=== PATIENT | female | born 1995 | race Caucasian/White ===

== ENCOUNTER 2017-10-27 19:41 | Emergency (ER) | payer OTHER ==
[~2017-10-27] VITALS: Ht 154.9 cm; Wt 92.1 kg
[~2017-10-27 19:41] MED LIST: ACET500 PO; AMOX500 PO; BCOIRO PO; BGALA3.3 PO; CALCA500CH PO; CALCAVITDA PO; CEPH500 PO; CIPR500 PO; CITA20 PO; CLOB.05TC TP; CLOM50A; HYDHCL25 PO; HYDPAM25 PO; HYDPAM50 PO; IBUP400 PO; LACTOBACILLUS; LORA.5 PO; LORA10 PO; LORA10ER PO; MELA3; MELA3 PO; MONT10T; MULVITA; NEOPOLHCSU OT; NYST100P TOP; OMEP20ER; OMEP20ER PO; OMEPRAZOLE MAGN20 MG PO; QUET100 PO; QUET25; QUET25 PO; RISP.5 PO; RISP2 PO; SELENIUM; SUCR1 PO; SULTRIDS PO; TOPI25 PO; TOPI50 PO; TRIA80TC TOP; [UNRECOGNIZED DRUG - OTHER]
[2017-10-27] MEDS ORDERED: BUSP5 (19:48)
[2018-04-29] MEDS ORDERED: WAL-FEX D 24 H1 EACH PO (13:34)
[2018-04-29] MEDS ORDERED: ACIDOPHILUS100 M1 PO (13:35)
[2018-04-29] MEDS ORDERED: Dairy Relie3000 UNIT PO (13:36)
[2018-04-29] MEDS ORDERED: Melatonin5 M1 PO (13:37)
[2018-04-29] MEDS ORDERED: TRAZ50 PO (13:38)
[2018-04-29] MEDS ORDERED: DIVA250EC PO (13:38)
[2018-04-29] MEDS ORDERED: BUSP10 PO (13:39)
[2018-04-29] MEDS ORDERED: HEARTBURN RELI150 M1 PO (13:39)
[2018-06-01] MEDS ORDERED: Hair, Skin & N1 EACH PO (12:09)
[2018-06-01] MEDS ORDERED: L-Lysine500 M1 (12:09)
[2018-06-01] MEDS ORDERED: SELENIUM (12:10)
== END 2017-10-27 20:45 | disposition home or self-care (01) ==
LOC: ER 19:41
DX: S60.352A Superficial foreign body of left thumb, initial encounter (principal); Z88.2 Allergy status to sulfonamides; Z79.899 Other long term (current) drug therapy; W45.8XXA Other foreign body or object entering through skin, initial encounter
CPT/HCPCS: 90471; 90714; 99283

== ENCOUNTER 2018-05-09 09:09 | Day surgery (SDC) | payer OTHER ==
[~2018-05-09] VITALS: Wt 81.7 kg
[~2018-05-09 09:09] MED LIST changes: +ACIDOPHILUS100 M1 PO; +BUSP10 PO; +BUSP5; +DIVA250EC PO; +Dairy Relie3000 UNIT PO; +HEARTBURN RELI150 M1 PO; +Melatonin5 M1 PO; +TRAZ50 PO; +WAL-FEX D 24 H1 EACH PO
[2018-05-09 12:24] LABS: Valproic Acid 16.7 ug/mL (50.0-100.0)
== END 2018-05-09 13:55 | disposition home or self-care (01) ==
LOC: ORSCSDS 09:09
PROVIDERS: Psychiatry & Neurology Psychiatry
DX: K02.9 Dental caries, unspecified (principal); F84.0 Autistic disorder; F79 Unspecified intellectual disabilities; G47.33 Obstructive sleep apnea (adult) (pediatric); K21.9 Gastro-esophageal reflux disease without esophagitis; Z79.899 Other long term (current) drug therapy
CPT/HCPCS: 80164; J1100; J1885; J2250; J2405; J2550; J3010; J7120

== ENCOUNTER 2018-06-02 09:04 | Day surgery (SDC) | payer OTHER ==
[~2018-06-02] VITALS: Ht 154.9 cm; Wt 82.1 kg
[~2018-06-02 09:04] MED LIST changes: +Hair, Skin & N1 EACH PO; +L-Lysine500 M1
== END 2018-06-02 15:33 | disposition home or self-care (01) ==
LOC: ORSCMMR 09:04 → ORD 10:00 → ORSCMMR 10:00
PROVIDERS: Internal Medicine Gastroenterology
PROC: 0DJD8ZZ Inspection of Lower Intestinal Tract, Via Natural or Artificial Opening Endoscopic (ICD-10-PCS; principal; 2018-06-02 10:00)
DX: Z12.11 Encounter for screening for malignant neoplasm of colon (principal); Z80.0 Family history of malignant neoplasm of digestive organs; K21.9 Gastro-esophageal reflux disease without esophagitis; F84.0 Autistic disorder; Z79.899 Other long term (current) drug therapy; F41.9 Anxiety disorder, unspecified
CPT/HCPCS: J2250; J2310; J3010; J7120

== ENCOUNTER → 2018-06-15 | Outpatient (CLI) | payer OTHER | LOC: LAB SHORT 10:20 → LAB 10:20 | DX: Z09 Encounter for follow-up examination after completed treatment for conditions other than malignant neoplasm (principal); Z86.14 Personal history of Methicillin resistant Staphylococcus aureus infection | CPT/HCPCS: 87070; 87077; 87147; 87186 ==

== ENCOUNTER → 2018-12-27 | Outpatient (CLI) | payer OTHER | END | disposition home or self-care (01) | LOC: LAB SHORT 11:56 → LAB EV 11:56 | DX: R10.2 Pelvic and perineal pain (principal) | CPT/HCPCS: 87070; 87205 ==

== ENCOUNTER → 2019-03-13 | Outpatient (CLI) | payer OTHER ==
[~2019-03-13] MED LIST changes: +CLON.5
[2019-03-13 16:10] LABS: Bilirubin, Urine Neg (Neg); Blood, Urine Neg (Neg); Glucose Qualitative, Urine Neg (Neg); Ketones, Urine Neg (Neg); Leukocyte Esterase, Urine Neg (Neg); Nitrite, Urine Neg (Neg); Protein, Urine Neg (Neg); Specific Gravity, Urine 1.015 (1.003-1.022); Urobilinogen, Urine NORM (Normal)
[2019-03-13 16:11] LABS: Appearance, Urine Clear (Clear); Color, Urine Yellow (P-Yellow)
== END | disposition home or self-care (01) ==
LOC: LAB SHORT 15:26 → LAB 15:26
PROVIDERS: Advanced Practice Midwife
DX: R35.0 Frequency of micturition (principal)
CPT/HCPCS: 81003; 87086

== ENCOUNTER 2019-06-08 07:11 | Day surgery (SDC) | payer OTHER ==
[~2019-06-08] VITALS: Ht 152.4 cm; Wt 66.0 kg
[~2019-06-08 07:11] MED LIST changes: -CLON.5
[2019-06-08] MEDS ORDERED: CLON.5 (08:04)
== END 2019-06-08 09:20 | disposition home or self-care (01) ==
LOC: ORSCSDS 07:11
PROVIDERS: Internal Medicine Gastroenterology
PROC: 0DB68ZX Excision of Stomach, Via Natural or Artificial Opening Endoscopic, Diagnostic (ICD-10-PCS; principal; 2019-06-08 08:30)
PROC: 0DB98ZX Excision of Duodenum, Via Natural or Artificial Opening Endoscopic, Diagnostic (ICD-10-PCS; principal; 2019-06-08 08:30)
PROC: 0DB58ZX Excision of Esophagus, Via Natural or Artificial Opening Endoscopic, Diagnostic (ICD-10-PCS; principal; 2019-06-08 08:30)
DX: R11.10 Vomiting, unspecified (principal); K29.70 Gastritis, unspecified, without bleeding; K44.9 Diaphragmatic hernia without obstruction or gangrene; K21.9 Gastro-esophageal reflux disease without esophagitis; F84.0 Autistic disorder; Z79.899 Other long term (current) drug therapy
CPT/HCPCS: 88305; 88342; J2405; J2704; J7120